=== PATIENT | male | born 1970 | race Native Hawaiian/Other Pacific Islander ===

== ENCOUNTER 2017-01-12 17:40 | Emergency (ER) | payer OTHER ==
[~2017-01-12] VITALS: Ht 190.5 cm; Wt 130.6 kg
[2017-01-12 17:50] VITALS: TEMP 98.1
[2017-01-12 18:45] VITALS: BP 132/80
== END 2017-01-12 18:45 | disposition home or self-care (01) ==
LOC: ED 17:40
DX: L73.9 Follicular disorder, unspecified (principal)
CPT/HCPCS: 87070; 87205; 99281